=== PATIENT | female | born 1990 | race Caucasian/White ===

== ENCOUNTER 2016-07-05 11:52 | Emergency (ER) | payer MEDICAID ==
[~2016-07-05 11:52] MED LIST: ACETAMINOPHEN/H1 TA6 PO; COL100 PO; KEFLEX250 MG PO; LAC PO; MAC100 PO; SIMVASTATIN10 M1 PO
[2016-07-05 14:32] VITALS: BP 115/72
== END 2016-07-05 14:32 | disposition home or self-care (01) ==
LOC: ED 11:52
DX: H10.9 Unspecified conjunctivitis (principal)

== ENCOUNTER 2016-07-15 23:40 | Emergency (ER) | payer MEDICAID ==
[2016-07-16 00:52] VITALS: BP 111/71
== END 2016-07-16 00:52 | disposition home or self-care (01) ==
LOC: ED 23:40
DX: L04.0 Acute lymphadenitis of face, head and neck (principal)
CPT/HCPCS: J1170; Q0162

== ENCOUNTER 2016-07-20 12:17 | Inpatient (IN) | payer MEDICAID ==
[~2016-07-20] VITALS: Ht 157.5 cm; Wt 78.5 kg
[2016-07-20 13:02] LABS: BASOPHIL % 0.3 % (0-2); PLATELET COUNT 184 x10^3mcL (130-400); RED CELL DISTRIBUTION WIDTH 12.7 % (11.5-14.5)
[2016-07-20 13:16] LABS: CALCIUM 8.8 mg/dL (8.5-10.1); CARBON DIOXIDE 28.3 mmol/L (21-32); CHLORIDE SERUM 106 mmol/L (98-107); CREATININE SERUM 0.9 mg/dL (0.6-1.0); GFR1 > 60 mL/min; GLUCOSE SERUM 118 mg/dL (74-106); POTASSIUM SERUM 3.5 mmol/L (3.5-5.1); SODIUM SERUM 140 mmol/L (136-145)
[2016-07-20 17:22] VITALS: BP 105/71
[2016-07-20 18:38] LABS: FREE T4 0.9 ng/dL (0.76-1.46); FREE THYROXINE INDEX 2.4 ug/dL (1.4-4.5); T4(THYROXINE) 6.6 ug/dL (4.7-13.3)
[2016-07-20 18:40] LABS: T3 TOTAL 1.03 ng/mL
[2016-07-20 18:50] LABS: MAGNESIUM 1.9 mg/dL (1.8-2.4); PHOSPHOROUS 3.2 mg/dL (2.5-4.9)
[2016-07-20 21:58] VITALS: BP 121/83
[2016-07-21 05:44] VITALS: BP 101/61
[2016-07-21 06:08] LABS: BASOPHIL % 0.2 % (0-2); PLATELET COUNT 167 x10^3mcL (130-400); RED CELL DISTRIBUTION WIDTH 12.9 % (11.5-14.5)
[2016-07-21 06:56] LABS: CARBON DIOXIDE 28.8 mmol/L (21-32); CHLORIDE SERUM 104 mmol/L (98-107); CREATININE SERUM 0.7 mg/dL (0.6-1.0); GFR1 > 60 mL/min; GLUCOSE SERUM 93 mg/dL (74-106); POTASSIUM SERUM 3.3 mmol/L (3.5-5.1); SODIUM SERUM 138 mmol/L (136-145)
[2016-07-21 06:57] LABS: CALCIUM 8.1 mg/dL (8.5-10.1)
[2016-07-21 10:12] VITALS: BP 94/61
[2016-07-21 13:50] VITALS: BP 96/62
[2016-07-21 17:49] LABS: microscopic required? NO
[2016-07-21 17:53] LABS: UA SPECIFIC GRAVITY 1.015 (1.005-1.035); urine erythrocyte NEGATIVE (NEGATIVE)
[2016-07-21 18:20] VITALS: BP 98/61
[2016-07-21 21:53] VITALS: BP 97/58
[2016-07-22 05:30] VITALS: BP 113/72
[2016-07-22 06:32] LABS: BASOPHIL % 0.3 % (0-2); PLATELET COUNT 209 x10^3mcL (130-400); RED CELL DISTRIBUTION WIDTH 12.7 % (11.5-14.5)
[2016-07-22 07:22] LABS: CALCIUM 8.8 mg/dL (8.5-10.1); CARBON DIOXIDE 23.1 mmol/L (21-32); CHLORIDE SERUM 107 mmol/L (98-107); CREATININE SERUM 0.6 mg/dL (0.6-1.0); GFR1 > 60 mL/min; GLUCOSE SERUM 145 mg/dL (74-106); POTASSIUM SERUM 3.9 mmol/L (3.5-5.1); SODIUM SERUM 140 mmol/L (136-145)
[2016-07-22 09:31] VITALS: BP 107/71
[2016-07-22] MEDS ORDERED: VAL500 PO (11:21)
[2016-07-22] MEDS ORDERED: NEU300 PO (11:22)
[2016-07-22] MEDS ORDERED: MEDDP PO (11:26)
[2016-07-22 13:01] VITALS: BP 107/71
== END 2016-07-22 14:56 | disposition home or self-care (01) | DRG 50 ==
LOC: ED 12:17 → MU 16:11
PROVIDERS: Emergency Medicine; ADMIT Family Medicine
DX: B02.22 Postherpetic trigeminal neuralgia (principal); E87.6 Hypokalemia; Z68.31 Body mass index [BMI] 31.0-31.9, adult
CPT/HCPCS: 84439; J0696; J1170; J1885; J2270; J2405; J2930; J3010; J3480; J7030; Q0092

== ENCOUNTER 2016-09-13 13:03 | Emergency (ER) | payer MEDICAID ==
[~2016-09-13 13:03] MED LIST changes: +MEDDP PO; +NEU300 PO; +VAL500 PO
[2016-09-13 17:06] VITALS: BP 114/77
== END 2016-09-13 17:06 | disposition home or self-care (01) ==
LOC: ED 13:03
DX: M54.42 Lumbago with sciatica, left side (principal); M54.41 Lumbago with sciatica, right side
CPT/HCPCS: J1885

== ENCOUNTER 2017-08-30 19:05 | Emergency (ER) | payer MEDICAID ==
[~2017-08-30] VITALS: Ht 157.5 cm; Wt 73.9 kg
[2017-08-30 19:14] VITALS: Ht 157.5 cm; Wt 73.9 kg
[2017-08-30 20:54] LABS: CALCIUM 9.3 mg/dL (8.5-10.1); CARBON DIOXIDE 23.2 mmol/L (21-32); CHLORIDE SERUM 106 mmol/L (98-107); CREATININE SERUM 0.8 mg/dL (0.6-1.0); GFR1 > 60 mL/min; GLUCOSE SERUM 124 mg/dL (74-106); POTASSIUM SERUM 3.2 mmol/L (3.5-5.1); SODIUM SERUM 141 mmol/L (136-145)
[2017-08-30 20:59] LABS: ALBUMIN 3.9 g/dL (3.4-5.0); ALKALINE PHOSPHATASE 78 U/L (46-116); ALT/SGPT 12 U/L (14-59); AST/SGOT 30 U/L (15-37); BILIRUBIN TOTAL 0.12 mg/dL (0.20-1.00); LIPASE 132 IU/L (73-393); TOTAL PROTEIN, SERUM 7.7 g/dL (6.4-8.2)
[2017-08-30 21:11] LABS: BASOPHIL % 0.3 % (0-2); PLATELET COUNT 241 x10^3mcL (130-400); RED CELL DISTRIBUTION WIDTH 13.3 % (11.5-14.5)
[2017-08-31 00:35] VITALS: BP 113/81
== END 2017-08-31 00:35 | disposition home or self-care (01) ==
LOC: ED 19:05
PROVIDERS: Emergency Medicine
DX: E87.6 Hypokalemia (principal); R10.32 Left lower quadrant pain
CPT/HCPCS: 87491; 87591; G0480; J0696; J1885; J2270